=== PATIENT | female | born 1950 | race Caucasian/White ===

== ENCOUNTER 2016-05-14 08:33 | Outpatient (CLI) | payer OTHER ==
[2016-02-05 21:46] VITALS: BP 138/82
[~2016-05-14 08:33] MED LIST: BUPIVACAINE HCL/PF 2.5 MG/ML 10ML VIAL IV ONE; Lidocaine 1% 5ml(IM or SUTURE)(PAIN CLINIC) ONE; TRIAMCINOLONE ACETONID 40MG/ML VIAL ONE
--- NOTE | 2016-05-14 09:54 | LUMBAR TFESI ---
SUBJECTIVE: Eboni follows up with me today with some recurrent left hip and posterior thigh pain which I treated last year in September of 2015 with a lumbar transforaminal injection which gave her significant relief. She more recently fell and had a hip fracture which required pinning. She has been using a cane for her right hip and she says that she has had some recurrence of the left leg pain. At this point, I think it is prudent to repeat the transforaminal injection under fluoroscopy. OBJECTIVE: General: The patient is well nourished, well developed, and in no apparent distress. Awake, alert, and oriented. HEENT: Pupils are equal, round, and reactive to light and accommodation. Extraocular movements intact. No facial droop. Neck: There is full range of motion of the cervical spine. No evidence of adenopathy. Thyroid is nontender, no enlarged. Carotids are without bruits. Chest: Clear to auscultation bilaterally. Normal. Chest excursion. Heart: Regular rate and rhythm without murmur. Abdomen: Benign. Normoactive bowel sounds. Motor/sensory: Intact in the upper and lower extremities. Moves all extremities freely. Back: There are normal cervical, thoracic and lumbar curvatures. There are negative sacroiliac joint findings bilaterally. No evidence of pain or tenderness over the facet joints. Negative piriformis bilaterally. Negative straight leg raise. No evidence of dermatomal weakness or numbness in the lower extremities. Bilateral negative femoral nerve stretch. Patellar tendons are 2+ and equal bilaterally. PROCEDURE: Left L4 transforaminal epidural steroid injection with fluoroscopic guidance. DESCRIPTION OF PROCEDURE: The risks and benefits were discussed with the patient including the risks of infection, bleeding, nerve injury, and headache, as well as the risks of steroid exposure causing hyperglycemia, hypertension, osteoporosis, or increased infectious risk. The patient understood these risks and agreed to proceed. Consent was obtained. The patient was placed in the prone position on the fluoroscopy table with a pillow underneath the abdomen to afford anterior flexion of the lumbar spine. The low back was cleaned and a sterile drape was applied. AP, lateral and oblique fluoroscopic views were obtained identifying the L4 vertebral body and L4 transverse process. An oblique view of the transverse process and pedicles was obtained. A 22-gauge, 6-inch spinal needle was advanced under direct-beam (barrel view) fluoroscopic guidance until the tip contacted the superior-most aspect of the L4 superior articulating process. The needle was then directed superiorly and medially a few millimeters towards the intervertebral foramen. A lateral fluoroscopic view was obtained and the needle was advanced into the inferior/anterior aspect of the L4 neural foramen (L4-L5 intervertebral foramen) epidural space. It was verified that there was no aspiration of CSF or blood. Omnipaque 240 myelogram dye was injected through the needle. The dye was noted to course in the desired distribution within the lumbar foramen epidural space. Triamcinolone acetate, 1% lidocaine, and 0.25% bupivacaine were injected into the epidural space. The stylet was replaced in the needle and the needle was removed from the back. The patient tolerated the procedure well. The back was cleaned and a bandage was applied over the injection site. The patient was monitored for 20 minutes following the procedure. During this time the vital signs remained stable and the patient experienced no adverse sequelae. The patient was discharged home in good condition. ASSESSMENT: 1. Lumbar intervertebral radicular pain. 2. Lumbar radiculitis. PLAN: Left L4 transforaminal epidural steroid injection with fluoroscopic guidance. I also discussed a surgical consultation. I have discussed a trial of neuromodulation. FOLLOWUP: Return to clinic if problems develop or worsen. YING
== END 2016-05-14 08:34 ==
LOC: OUT 08:33
PROVIDERS: ATTEND Anesthesiology Pain Medicine
DX: M51.16 Intervertebral disc disorders with radiculopathy, lumbar region (principal)
CPT/HCPCS: J3301; J3490; Q9966; 99214

== ENCOUNTER 2016-08-17 08:08 | Outpatient (CLI) | payer OTHER ==
[2016-02-05 21:46] VITALS: BP 138/82
[2016-08-17 09:13] LABS: eGFR (African) > 60; eGFR (Non-African) > 60
== END 2016-08-17 08:10 ==
LOC: LAB 08:08
PROVIDERS: ATTEND Clinical Nurse Specialist Medical-Surgical
DX: M81.0 Age-related osteoporosis without current pathological fracture (principal); Z87.310 Personal history of (healed) osteoporosis fracture
CPT/HCPCS: 36415; 80053; 82306; 83970

== ENCOUNTER 2016-09-12 09:24 | Outpatient (CLI) | payer OTHER ==
[2016-02-05 21:46] VITALS: BP 138/82
--- NOTE | 2016-09-13 06:54 | Diagnostic Imaging Report ---
JESUSITA GOLDMAN~ [facility] [address] [facility] [address] [place], [place]. [address] ~ ~ ~ ~ Report Submission Date: Sep 12, 2016 11:04:23 AM CDT Patient ~ Study Name: BREE LUX ~ Date: Sep 12, 2016 10:14:55 AM CDT ~ Modality Type: CT\SR Gender: F ~ Description: CT LEG W/O CONTRAST : 54 ~ Institution: [facility] Physician: JESUSITA GOLDMAN ~ ~ ~ ~ Examination: CT extremity History: Hip fracture Comparison exams: Plain film dated 27 January 2016 Technique: Axial imaging with sagittal and coronal reconstruction. Findings: 3 fixation screws identified traversing the proximal femur - extending into the femoral head. Undersurface of the femoral head demonstrates a cortical lucency. Remainder of the cortex and medullary region are without evidence for lucency or fracture line. No callus formation. No dislocation from the acetabulum. Remainder of the femoral shaft is within normal limits. Impression: Fixation hardware in place. Continued lucency involving the inferior femoral head cortical margin. No overt callus formation. ~ Electronically signed on Sep 12, 2016 11:04:23 AM CDT by: Carlos A HE
== END 2016-09-12 09:25 ==
LOC: RAD 09:24
PROVIDERS: ATTEND Orthopaedic Surgery
DX: S72.001A Fracture of unspecified part of neck of right femur, initial encounter for closed fracture (principal); M80.00XA Age-related osteoporosis with current pathological fracture, unspecified site, initial encounter for fracture; Y93.9 Activity, unspecified; Y99.9 Unspecified external cause status
CPT/HCPCS: 73700

== ENCOUNTER 2016-09-28 10:07 | Outpatient (CLI) | payer OTHER ==
[2016-02-05 21:46] VITALS: BP 138/82
== END 2016-09-28 10:10 ==
LOC: LAB 10:07
PROVIDERS: ATTEND Clinical Nurse Specialist Medical-Surgical
DX: M81.0 Age-related osteoporosis without current pathological fracture (principal); Z87.310 Personal history of (healed) osteoporosis fracture; E55.9 Vitamin D deficiency, unspecified
CPT/HCPCS: 36415; 82310

== ENCOUNTER 2016-10-30 07:57 | Outpatient (CLI) | payer OTHER ==
[2016-02-05 21:46] VITALS: BP 138/82
== END 2016-10-30 09:57 ==
LOC: LAB 07:57
PROVIDERS: ATTEND Clinical Nurse Specialist Medical-Surgical
DX: M81.0 Age-related osteoporosis without current pathological fracture (principal); Z87.310 Personal history of (healed) osteoporosis fracture; E55.9 Vitamin D deficiency, unspecified
CPT/HCPCS: 36415; 82310; 82330

== ENCOUNTER 2016-12-15 14:44 | Inpatient (IN) | payer OTHER ==
[2016-12-15] MEDS ORDERED: GABAPENTIN 300 MG CAPSULE ONE (16:55)
[2016-12-15] MEDS: traMADol HCL 50 MG TABLET PO SCH ×2 (17:10→19:41)
[2016-12-15] MEDS: ENOXAPARIN SODIUM 30 MG/0.3 ML DISP.SYRIN SQ SCH (17:11)
[2016-12-15] MEDS ORDERED: diphenhydrAMINE HCL 25 MG TABLET PO PRN (18:29)
[2016-12-15] MEDS ORDERED: ONDANSETRON HCL 4 MG TAB.RAPDIS PO PRN (18:29)
[2016-12-15] MEDS ORDERED: HYDROcodone /APAP 5/325 1 EACH TABLET PO PRN (18:29)
[2016-12-15] MEDS ORDERED: DIAZEPAM 5 MG TABLET PO PRN (18:29)
--- NOTE | 2016-12-15 18:47 | History and Physical Report ---
History of Present Illnes - History of Present Illness Reason for Visit: gait disturbance following back surgery History of Present Illness: 56-year-old white female who was recently collectively admitted to [facility] for elective back surgery. Patient had anterior and posterior lumbar fusion approach. Patient tolerated procedure well. Patient did not have any intraoperative or postoperative complication that she is aware. Patient has had a small dominant since surgery. Patient is up ambulating with assistance with physical therapy. Patient continues to have a fair amount of pain. Patient does medical problems appear to be stable. Patient was transferred to this institution for further rehab services. 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 negative: Chills, Weakness Eyes: negative: pain, vision change ENT: negative: Ear Pain, Ear Discharge, Nose Pain, Nose Discharge, Nose Congestion, Mouth Pain, Mouth Swelling, Throat Pain Respiratory: negative: Cough, Dry, Shortness of Breath, Hemoptysis, SOB with Excertion, Pleuritic Pain Cardiovascular: negative: Chest Pain, Palpitations, Orthopnea Gastrointestinal: Constipation. negative: Nausea, Vomiting, Abdominal Pain, Diarrhea, Melena, Hematochezia Genitourinary: negative: Dysuria, Frequency, Incontinence, Hematuria Musculoskeletal: Back Pain. negative: Leg Pain Skin: negative: Rash Neurological: negative: Weakness, Numbness - Medications/Allergies Allergies/Adverse Reactions: Allergies Allergy/AdvReac Type Severity Reaction Status Date / Time codeine Allergy Verified 01/05/16 19:04 Home Medications: Home Medications Aspirin [Pete] 81 mg PO DAILY 12/15/16 Cholecalciferol [Vitamin D-3] 1 tab PO BID 12/15/16 Diazepam [Valium] 1 tab PO Q8 PRN 12/15/16 Dorzolamide HCl/Timolol Maleat [Dorzolamide-Timolol Eye Drops] 1 drop OP 209912/15/16 Gabapentin 300 mg PO QID 12/15/16 HYDROcodone /APAP 5/325 [[place] 5/325] 1 - 2 tab PO Q4 PRN 12/15/16 [place]-3 Fatty Acids/Fish Oil [Fish Oil Dr 1,000 mg Softgel] 1 cap PO BID Ondansetron HCl Rapdis [Zofran ODT] 1 tab PO Q6 PRN 12/15/16 Tramadol HCl [Ultram] 50 - 100 mg PO Q4 PRN 12/15/16 diphenhydrAMINE HCL [Benadryl] 1 tab PO Q6 PRN 12/15/16 Current Inpatient Medications: Current Inpatient Medications Acetaminophen (Tylenol Extra Strength) 500 mg PO Q4H PRN PRN Reason: Fever >101 Al Hydroxide/Mg Hydroxide (Milk Of Magnesia) 2,400 mg PO DAILY PRN PRN Reason: Constipation Aspirin (Aspirin) 81 mg PO DAILY [facility] Cholecalciferol (Vitamin D-3) 1,000 unit PO DAILY [facility] Diazepam (Valium) mg PO Q8 PRN PRN Reason: Spasms Diphenhydramine HCl (Benadryl) mg PO Q6 PRN PRN Reason: itching Docusate Sodium (Colace) 100 mg PO DAILY [facility] Dorzolamide/Timolol ([place] Eye Drops) 1 drop OP [facility] Enoxaparin Sodium (Lovenox) 30 mg SQ QD [facility] Stop: 12/28/16 16:01 Last Admin: 12/15/16 17:11 Dose: 30 mg Gabapentin (Neurontin) 300 mg PO QID [facility] Ondansetron HCl (Zofran Odt) mg PO Q6 PRN PRN Reason: Nausea / Vomiting Tramadol HCl (Ultram) 50 mg PO Q4 [facility] Last Admin: 12/15/16 17:10 Dose: 50 mg Exam - Exam General: Alert, Oriented to Person, Oriented to Place, Oriented to Time, Cooperative, Moderate distress HEENT: Atraumatic, PERRLA, Mouth Mucous membr. moist/[place], Hearing Grossly Normal Neck: Normal Range of Motion. No: Stridor, Rigidity, Lymphadenopathy Carotids: WNL Thyroid: WNL Lungs: Clear to auscultation, Normal air movement, Speaks full Sentences. No: Wheezes, Rales, Rhonchi Cardiovascular: Regular rate, Normal S1, Normal S2, No murmurs. No: Gallops, Rubs Peripheral Pulses: normal Abdomen: Normal bowel sounds, Soft, No tenderness, No hepatospenomegaly, No masses Integumentary: Normal, [place], Warm, Other (breast soft, no masses) Extremities: No clubbing, No cyanosis, No edema, Normal pulses, No tenderness/ swelling Neurological: Normal speech, Strength Equal Bilat, Normal tone, Sensation intact , Cranial nerves 3-12 NL, Reflexes 2+ Psych/Mental Status: Mental status NL, Mood NL, Appropriate Affect, Intact Judgment Assessment/Plan - Assessment/Plan (1) Constipation Status: Acute Current Visit: No (2) Gait disturbance Status: Acute Current Visit: No VTE Assessment - RISK FACTOR SCORE VTE RISK FACTOR SCORES: AGE 40-60 YEARS, MAJOR SURGERY/ANESTHESIA TIME > 1 HOUR - RISK VTE MODERATE RISK: SCORE OF 2 (RISK PROXIMAL DVT 2-4%) PROPHYAXIS NEEDED
[2016-12-15] MEDS: DORZOLAMINE HCL/TIMOLOL MALEAT OPTH DROP OP SCH (19:17)
[2016-12-15] MEDS: GABAPENTIN 300 MG CAPSULE PO SCH (19:17)
[2016-12-15] MEDS: POLYETHYLENE GLYCOL 3350 17 GM POWD.PACK PO SCH (19:21)
[2016-12-15 19:34] VITALS: BMI 36.8
[2016-12-15] MEDS: HYDROcodone /APAP 5/325 1 EACH TABLET PO PRN ×2 (19:39→23:36)
[2016-12-15] MEDS ORDERED: GABAPENTIN 100 MG CAPSULE PO SCH (21:00)
[2016-12-16] MEDS ORDERED: ASPIRIN EC 81 MG TABLET.DR ONE (02:00)
[2016-12-16] MEDS: traMADol HCL 50 MG TABLET PO SCH ×6 (03:09→22:11)
[2016-12-16] MEDS: HYDROcodone /APAP 5/325 1 EACH TABLET PO PRN ×5 (03:37→20:10)
[2016-12-16] MEDS: diphenhydrAMINE HCL 25 MG TABLET PO PRN ×2 (08:16→11:56)
[2016-12-16] MEDS: ASPIRIN 81 MG CHEW TAB PO SCH (08:54)
[2016-12-16] MEDS: DORZOLAMINE HCL/TIMOLOL MALEAT OPTH DROP OP SCH ×2 (08:59→20:11)
[2016-12-16] MEDS: DOCUSATE SODIUM 100 MG CAPSULE PO SCH (08:59)
[2016-12-16] MEDS: CHOLECALCIFEROL 1,000 UNIT TABLET PO SCH (09:00)
[2016-12-16] MEDS: GABAPENTIN 300 MG CAPSULE PO SCH ×4 (09:00→20:11)
[2016-12-16] MEDS: POLYETHYLENE GLYCOL 3350 17 GM POWD.PACK PO SCH (11:13)
[2016-12-16] MEDS ORDERED: oxyCODONE/ACETAMINOPHEN 5/325 TABLET PO ONE (11:51)
[2016-12-16] MEDS: ENOXAPARIN SODIUM 30 MG/0.3 ML DISP.SYRIN SQ SCH (15:59)
[2016-12-17] MEDS ORDERED: oxyCODONE/ACETAMINOPHEN 5/325 TABLET PO ONE (00:01)
[2016-12-17] MEDS: HYDROcodone /APAP 5/325 1 EACH TABLET PO PRN ×4 (00:13→20:40)
[2016-12-17] MEDS: traMADol HCL 50 MG TABLET PO SCH ×6 (02:06→20:39)
[2016-12-17] MEDS ORDERED: ASPIRIN EC 81 MG TABLET.DR ONE (04:42)
[2016-12-17] MEDS: DOCUSATE SODIUM 100 MG CAPSULE PO SCH (08:20)
[2016-12-17] MEDS: GABAPENTIN 300 MG CAPSULE PO SCH ×4 (08:20→20:39)
[2016-12-17] MEDS: DORZOLAMINE HCL/TIMOLOL MALEAT OPTH DROP OP SCH ×2 (08:20→20:40)
[2016-12-17] MEDS: CHOLECALCIFEROL 1,000 UNIT TABLET PO SCH (08:21)
[2016-12-17] MEDS: ASPIRIN 81 MG CHEW TAB PO SCH (08:21)
[2016-12-17] MEDS ORDERED: HYDROcodone /APAP 10/325 1 EACH TABLET PO ONE ×2 (08:26→08:42)
[2016-12-17] MEDS: MAGNESIUM HYDROXIDE 400 MG/5 ML 30ML UDC PO PRN (08:45)
[2016-12-17] MEDS: POLYETHYLENE GLYCOL 3350 17 GM POWD.PACK PO SCH (11:39)
[2016-12-17] MEDS: ACETAMINOPHEN 325 MG TABLET PO PRN (11:43)
[2016-12-17] MEDS: ENOXAPARIN SODIUM 30 MG/0.3 ML DISP.SYRIN SQ SCH (16:45)
[2016-12-17] MEDS: ONDANSETRON HCL 4 MG TAB.RAPDIS PO PRN (16:54)
[2016-12-18] MEDS: traMADol HCL 50 MG TABLET PO SCH ×6 (01:15→20:27)
[2016-12-18] MEDS: HYDROcodone /APAP 5/325 1 EACH TABLET PO PRN ×5 (05:08→20:28)
[2016-12-18] MEDS: GABAPENTIN 300 MG CAPSULE PO SCH ×4 (08:36→20:27)
[2016-12-18] MEDS: DOCUSATE SODIUM 100 MG CAPSULE PO SCH (08:36)
[2016-12-18] MEDS: DORZOLAMINE HCL/TIMOLOL MALEAT OPTH DROP OP SCH ×2 (08:36→20:27)
[2016-12-18] MEDS: ASPIRIN 81 MG CHEW TAB PO SCH (08:36)
[2016-12-18] MEDS: CHOLECALCIFEROL 1,000 UNIT TABLET PO SCH (08:36)
[2016-12-18] MEDS ORDERED: BISACODYL 10 MG SUPP.RECT RC PRN (11:01)
[2016-12-18] MEDS: POLYETHYLENE GLYCOL 3350 17 GM POWD.PACK PO SCH (11:42)
[2016-12-18] MEDS: ENOXAPARIN SODIUM 30 MG/0.3 ML DISP.SYRIN SQ SCH (15:34)
[2016-12-18] MEDS: ONDANSETRON HCL 4 MG TAB.RAPDIS PO PRN (17:55)
[2016-12-18] MEDS: MAGNESIUM HYDROXIDE 400 MG/5 ML 30ML UDC PO PRN (20:28)
[2016-12-19] MEDS: ONDANSETRON HCL 4 MG TAB.RAPDIS PO PRN (00:31)
[2016-12-19] MEDS: traMADol HCL 50 MG TABLET PO SCH ×6 (00:31→20:19)
[2016-12-19] MEDS: ACETAMINOPHEN 500 MG TABLET PO PRN ×2 (02:46→05:42)
[2016-12-19] MEDS: ASPIRIN 81 MG CHEW TAB PO SCH (08:23)
[2016-12-19] MEDS: DOCUSATE SODIUM 100 MG CAPSULE PO SCH (08:23)
[2016-12-19] MEDS: CHOLECALCIFEROL 1,000 UNIT TABLET PO SCH (08:24)
[2016-12-19] MEDS: DORZOLAMINE HCL/TIMOLOL MALEAT OPTH DROP OP SCH ×2 (08:24→20:19)
[2016-12-19] MEDS: GABAPENTIN 300 MG CAPSULE PO SCH ×4 (08:24→20:19)
[2016-12-19] MEDS: ACETAMINOPHEN 325 MG TABLET PO PRN (08:28)
[2016-12-19] MEDS ORDERED: HYDROcodone /APAP 5/325 1 EACH TABLET PO PRN ×2 (10:59→11:06)
[2016-12-19] MEDS ORDERED: POLYETHYLENE GLYCOL 3350 17 GM POWD.PACK PO PRN (11:00)
[2016-12-19] MEDS ORDERED: ONDANSETRON HCL 4 MG TAB.RAPDIS PO PRN ×2 (11:01→11:07)
[2016-12-19] MEDS ORDERED: PROMETHAZINE HCL 12.5 MG SUPP.RECT RC PRN (11:09)
[2016-12-19] MEDS: ACETAMINOPHEN 325 MG TABLET PO SCH ×3 (12:50→20:19)
[2016-12-19] MEDS: ACETAMINOPHEN 500 MG TABLET PO SCH ×3 (12:50→20:19)
[2016-12-19] MEDS: ENOXAPARIN SODIUM 30 MG/0.3 ML DISP.SYRIN SQ SCH (16:13)
[2016-12-20] MEDS: traMADol HCL 50 MG TABLET PO PRN ×3 (00:57→18:06)
[2016-12-20] MEDS: ACETAMINOPHEN 325 MG TABLET PO SCH ×4 (05:34→20:16)
[2016-12-20] MEDS: ACETAMINOPHEN 500 MG TABLET PO SCH ×4 (05:34→20:25)
[2016-12-20] MEDS: traMADol HCL 50 MG TABLET PO SCH ×4 (05:34→21:14)
[2016-12-20] MEDS: DOCUSATE SODIUM 100 MG CAPSULE PO SCH (09:19)
[2016-12-20] MEDS: CHOLECALCIFEROL 1,000 UNIT TABLET PO SCH (09:20)
[2016-12-20] MEDS: ASPIRIN 81 MG CHEW TAB PO SCH (09:25)
[2016-12-20] MEDS: DORZOLAMINE HCL/TIMOLOL MALEAT OPTH DROP OP SCH ×2 (09:31→20:16)
[2016-12-20] MEDS: GABAPENTIN 300 MG CAPSULE PO SCH ×4 (09:31→20:16)
--- NOTE | 2016-12-20 10:45 | Inpatient Progress Note ---
Subjective - Required Recertification Statement I anticipate X number of days because-include discharge plan: 7 days - Review of Systems Events since last encounter: Patient seem to be progressing well at this time. Patient is ambulating a fair distance with minimal assistance. Patient is participating with physical and occupational therapy well. Patient continues to have a fair amount of pain when up walking. Patient does feel like she is having some constipation issues. General: Denies: Chills Pulmonary: Denies: Dyspnea, Cough Cardiovascular: Denies: Chest Pain Gastrointestinal: Constipation. Denies: Nausea, Vomiting, Abdominal Pain Genitourinary: Denies: Dysuria Musculoskeletal: Back Pain Objective - Exam Vitals and I&O: Vital Signs Temp 98.2 F 12/20/16 09:00 Pulse 65 12/20/16 09:00 Resp 18 12/20/16 09:00 BP 120/57 12/20/16 09:00 Pulse Ox 97 12/20/16 09:00 Intake & Output 12/19/16 12/19/16 12/20/16 11:59 23:59 11:59 Intake Total 600 1160 600 Balance 600 1160 600 Intake: Oral 600 1160 600 Other: Voiding Method Toilet Toilet # Voids 4 2 # Bowel Movements 1 General: Alert, Oriented to Person, Oriented to Place, Oriented to Time, Moderate distress Neck: Supple Lungs: Clear to auscultation, Normal air movement, Speaks full Sentences. No: Wheezes, Rales, Rhonchi Cardiovascular: Regular rate, Normal S1, Normal S2, No murmurs Abdomen: Normal bowel sounds, Soft, No tenderness, No masses. No: Distended Extremities: No clubbing, No cyanosis, No edema Skin: Normal, [place], Warm, Dry Neurological: Normal speech, Strength Equal Bilat, Normal tone. No: Normal gait Psych/Mental Status: Mental status NL, Mood NL, Appropriate Affect, Intact Judgment Assessment/Plan - Assessment/Plan (1) Gait disturbance Status: Acute Current Visit: No Assessment: Appears to be improving. Chandrikaeive that she will need further PT and OT services through home health when discharged. (2) Constipation Status: Acute Current Visit: Yes Qualifiers: Constipation type: slow transit constipation Qualified Code(s): K59.01 - Slow transit constipation Assessment: Patient was advised that I could give her an enema or suppository. Patient wanted to wait until tomorrow and if no bowel movement from the medication that she took today along with the prune juice will consider other options. Will need nursing services post discharge to monitor.
[2016-12-20] MEDS: ENOXAPARIN SODIUM 30 MG/0.3 ML DISP.SYRIN SQ SCH (16:18)
[2016-12-21] MEDS: traMADol HCL 50 MG TABLET PO PRN ×2 (02:57→08:46)
[2016-12-21] MEDS: traMADol HCL 50 MG TABLET PO SCH ×2 (06:23→11:04)
[2016-12-21] MEDS: ACETAMINOPHEN 325 MG TABLET PO SCH ×2 (06:23→11:04)
[2016-12-21] MEDS: ACETAMINOPHEN 500 MG TABLET PO SCH ×2 (06:23→11:04)
[2016-12-21] MEDS: DORZOLAMINE HCL/TIMOLOL MALEAT OPTH DROP OP SCH (08:45)
[2016-12-21] MEDS: DOCUSATE SODIUM 100 MG CAPSULE PO SCH (08:45)
[2016-12-21] MEDS: GABAPENTIN 300 MG CAPSULE PO SCH (08:45)
[2016-12-21] MEDS: ASPIRIN 81 MG CHEW TAB PO SCH (08:45)
[2016-12-21] MEDS: CHOLECALCIFEROL 1,000 UNIT TABLET PO SCH (08:45)
--- NOTE | 2016-12-21 08:49 | Discharge Summary ---
Discharge Summary - Discharge Sumary History of Present Illness: 56-year-old white female who was recently collectively admitted to [facility] [place] [facility] [place] for elective back [place]. Patient had anterior and posterior lumbar fusion approach. Patient tolerated procedure well. Patient did not have any intraoperative or postoperative complication that she is aware. Patient has had a small dominant since surgery. Patient is up ambulating with assistance with physical therapy. Patient continues to have a fair amount of pain. Patient does medical problems appear to be stable. Patient was transferred to this institution for further rehab services. Condition at Discharge: Stable Home Medications: Ambulatory Orders Medication Instructions Recorded Acetaminophen [Tylenol Extra 500 mg PO Q4H PRN #0 tablet 02/06/16 Strength] Magnesium Hydroxide [Milk of 2,400 mg PO DAILY PRN #0 unit dose 02/06/16 Magnesia] cup Aspirin [Pete] 81 mg PO DAILY 12/15/16 Cholecalciferol [Vitamin D-3] 1 tab PO BID 12/15/16 Dorzolamide HCl/Timolol Maleat 1 drop OP 12/15/16 [Dorzolamide-Timolol Eye Drops] Gabapentin 300 mg PO QID 12/15/16 [place]-3 Fatty Acids/Fish Oil [Fish 1 cap PO BID 12/15/[address] 1,000 mg Softgel] Ondansetron HCl Rapdis [Zofran ODT] 1 tab PO Q6 PRN 12/15/16 Docusate Sodium [Colace] 100 mg PO DAILY capsule 12/21/16 Polyethylene Glycol 3350 [Miralax] 17 gm PO DAILY PRN powd.pack 12/21/16 Consultations this Visit: None Procedures this Visit: None Allergies/Adverse Reactions: Allergies Allergy/AdvReac Type Severity Reaction Status Date / Time codeine Allergy Verified 01/05/16 19:04 Discharge Summary: Patient did well and was high motivated to participate with PT and OT. Patient made progress with ambualtion. Pain was controlled. Patient did has some initial problems with constipation. But at the time of discharge was having BM without difficulties. Neuropathy remained stable. At the time of discharge it was felt that she could be discharged with outpatient PT and OT. - Final Diagnosis (1) Gait disturbance Problems: Pt did well and improved with PT and OT (2) Constipation Problems: Is still having some difficulties. Will continue with meds as ordered.
[2016-12-21 10:02] VITALS: BP 124/76
== END 2016-12-21 11:50 | disposition home health service (06) | DRG 561 ==
LOC: SOUTH 14:44
PROVIDERS: ADMIT Family Medicine; ATTEND Family Medicine
DX: Z47.89 Encounter for other orthopedic aftercare (principal); R26.9 Unspecified abnormalities of gait and mobility; K59.00 Constipation, unspecified
CPT/HCPCS: 97110; 97116; 97161; 97165; 97530; 97535; A9270; J1650; Q0163

== ENCOUNTER 2017-01-17 14:57 | Outpatient (CLI) | payer OTHER ==
--- NOTE | 2017-01-17 15:45 | Diagnostic Imaging Report ---
JESUSITA GOLDMAN [facility] [address] [facility] [address] [place] [address]. [id number] Report Submission Date: Jan 17, 2017 3:39:38 PM CDT Patient Study Name: BREE LUX Date: Jan 17, 2017 3:08:26 PM CDT Modality Type: CT\SR Gender: F Description: CT LEG W/O CONTRAST : 54 Institution: [facility] Physician: JESUSITA GOLDMAN Examination: CT extremity History: Hip fracture Comparison exams: Plain film dated 27 January 2016; CT scan dated 12 September 2016 Technique: Axial imaging with sagittal and coronal reconstruction. Findings: 3 fixation screws identified traversing the proximal femur - extending into the femoral head. Undersurface of the femoral head demonstrates a cortical lucency: unchanged in appearance. Remainder of the cortex and medullary region are without evidence for lucency or fracture line. No callus formation. No dislocation from the acetabulum. Remainder of the femoral shaft is within normal limits. Impression: Fixation hardware in place. Continued lucency involving the inferior femoral head cortical margin - unchanged when compared with previous CT scan from 12 September 2016. No overt callus formation. Electronically signed on Jan 17, 2017 3:39:38 PM CDT by: Carlos A HE
== END 2017-01-17 15:00 ==
LOC: RAD 14:57
PROVIDERS: ATTEND Orthopaedic Surgery
DX: S72.001A Fracture of unspecified part of neck of right femur, initial encounter for closed fracture (principal); M80.00XD Age-related osteoporosis with current pathological fracture, unspecified site, subsequent encounter for fracture with routine healing
CPT/HCPCS: 73700

== ENCOUNTER 2017-04-18 08:40 | Outpatient (CLI) | payer OTHER | END 2017-04-18 08:42 | LOC: LAB 08:40 | PROVIDERS: ATTEND Clinical Nurse Specialist Medical-Surgical | DX: M81.0 Age-related osteoporosis without current pathological fracture (principal); Z87.310 Personal history of (healed) osteoporosis fracture; E55.9 Vitamin D deficiency, unspecified; E83.52 Hypercalcemia | CPT/HCPCS: 36415; 82306; 82310 ==

== ENCOUNTER 2017-05-20 09:15 | Outpatient (CLI) | payer OTHER | END 2017-05-20 09:16 | LOC: LAB 09:15 | PROVIDERS: ATTEND Clinical Nurse Specialist Medical-Surgical | DX: M81.0 Age-related osteoporosis without current pathological fracture (principal); E55.9 Vitamin D deficiency, unspecified; Z87.310 Personal history of (healed) osteoporosis fracture; E83.52 Hypercalcemia | CPT/HCPCS: 36415; 82310; 82330 ==

== ENCOUNTER 2017-05-23 11:32 | Outpatient (CLI) | payer OTHER | END 2017-05-23 11:33 | LOC: LAB 11:32 | PROVIDERS: ATTEND Family Medicine | DX: E83.52 Hypercalcemia (principal) | CPT/HCPCS: 36415; 83970 ==

== ENCOUNTER 2017-05-28 14:13 | Outpatient (CLI) | payer OTHER ==
--- NOTE | 2017-05-28 16:05 | Diagnostic Imaging Report ---
[facility] [address] [facility] [id number] Report Submission Date: May 28, 2017 3:55:37 PM CDT Patient Study Name: BREE LUX Date: May 28, 2017 2:58:16 PM CDT Modality Type: DX Gender: F Description: LOWER EXTREMITY : 54 Institution: [facility] Physician ROYCE ROSS - WIN Three views of the right knee CLINICAL HISTORY: Knee pain for 6 years. FINDINGS: Examination of the right knee in AP, lateral and sunrise views demonstrates degenerative changes with narrowing of the joint space and prominence of the tibial spines. Medial and lateral osteophytes are demonstrated. Patellofemoral space is narrowed with osteophyte formation. There is no fracture or joint effusion. IMPRESSION: Degenerative changes. No fracture. Electronically signed on May 28, 2017 3:55:37 PM CDT by: Charlie HE
== END 2017-05-28 14:30 ==
LOC: RAD 14:13
PROVIDERS: ATTEND Family Medicine
DX: M25.561 Pain in right knee (principal)
CPT/HCPCS: 73562

== ENCOUNTER 2017-06-24 09:14 | Outpatient (CLI) | payer OTHER | END 2017-06-24 09:15 | LOC: LAB 09:14 | PROVIDERS: ATTEND Clinical Nurse Specialist Medical-Surgical | DX: M81.0 Age-related osteoporosis without current pathological fracture (principal); E55.9 Vitamin D deficiency, unspecified; Z87.310 Personal history of (healed) osteoporosis fracture; E83.52 Hypercalcemia | CPT/HCPCS: 36415; 82310 ==

== ENCOUNTER 2017-07-29 10:12 | Outpatient (CLI) | payer MEDICARE, OTHER | END 2017-07-29 10:13 | LOC: LAB 10:12 | PROVIDERS: ATTEND Clinical Nurse Specialist Medical-Surgical | DX: M81.0 Age-related osteoporosis without current pathological fracture (principal); E55.9 Vitamin D deficiency, unspecified; Z87.310 Personal history of (healed) osteoporosis fracture; E83.52 Hypercalcemia | CPT/HCPCS: 36415; 82330 ==

== ENCOUNTER → 2017-10-24 | Outpatient (CLI) | payer MEDICARE, OTHER | LOC: LAB 09:47 | PROVIDERS: ATTEND Clinical Nurse Specialist Medical-Surgical | DX: M81.0 Age-related osteoporosis without current pathological fracture (principal); E55.9 Vitamin D deficiency, unspecified; Z87.310 Personal history of (healed) osteoporosis fracture; E83.52 Hypercalcemia | CPT/HCPCS: 36415; 82330; 83735; 83970; 84100 ==

== ENCOUNTER 2018-05-01 08:47 | Outpatient (CLI) | payer MEDICARE, OTHER | END 2018-05-01 08:50 | LOC: LAB 08:47 | PROVIDERS: ATTEND Clinical Nurse Specialist Medical-Surgical | DX: M81.0 Age-related osteoporosis without current pathological fracture (principal); E55.9 Vitamin D deficiency, unspecified; Z87.310 Personal history of (healed) osteoporosis fracture | CPT/HCPCS: 36415; 82306; 82310 ==

== ENCOUNTER 2018-08-14 11:30 | Outpatient (CLI) | payer MEDICARE, OTHER | END 2018-08-14 11:35 | LOC: LAB 11:30 | PROVIDERS: ATTEND Family Medicine | DX: E53.8 Deficiency of other specified B group vitamins (principal) | CPT/HCPCS: 36415; 82607 ==

== ENCOUNTER 2018-09-30 09:02 | Outpatient (CLI) | payer MEDICARE, OTHER | END 2018-09-30 09:04 | LOC: LAB 09:02 | PROVIDERS: ATTEND Clinical Nurse Specialist Medical-Surgical | DX: E55.9 Vitamin D deficiency, unspecified (principal); M81.0 Age-related osteoporosis without current pathological fracture; Z87.310 Personal history of (healed) osteoporosis fracture | CPT/HCPCS: 36415; 82306; 82310 ==

== ENCOUNTER 2018-11-10 09:31 | Outpatient (CLI) | payer MEDICARE, OTHER | END 2018-11-10 09:33 | LOC: LAB 09:31 | PROVIDERS: ATTEND Clinical Nurse Specialist Medical-Surgical | DX: E55.9 Vitamin D deficiency, unspecified (principal); M81.0 Age-related osteoporosis without current pathological fracture; Z87.310 Personal history of (healed) osteoporosis fracture | CPT/HCPCS: 36415; 82310 ==